=== PATIENT | male | born 1970 ===

== ENCOUNTER → 2020-08-15 10:01 | Outpatient (CLI) | payer OTHER, SELFPAY ==
[2020-08-15 13:08] LABS: COVID-19 CEPHEID PCR (VTM/NP) Negative (Negative)
== END ==
PROVIDERS: PCP Physician Assistant; Referring Provider Physician Assistant; Visit Provider Physician Assistant
DX: Z20.822 Contact with and (suspected) exposure to COVID-19 (principal)
CPT/HCPCS: U0003